=== PATIENT | female | born 1980 | race Two or more races ===

== ENCOUNTER 2025-07-06 10:52 | Inpatient (IN) | payer OTHER ==
[~2025-07-06] VITALS: Ht 170.2 cm; Wt 99.8 kg
[2025-07-06] MEDS ORDERED: HYZAAR 50-12.51 EACH PO (11:50)
[2025-07-06 11:51] VITALS: BP 131/90
[2025-07-06 12:01] LABS: BASO % 0.3 % (0.1-1.2); EOS # 0.07 (0.04-0.54); EOS % 1.2 % (0.7-7.0); LYMPH # 2.27 (1.18-3.74); LYMPH % 37.5 % (19.3-53.1); MEAN PLATELET VOLUME 10.80 fl (9.4-12.4); MONO # 0.44 (0.24-0.82); MONO % 7.3 % (4.7-12.5); NEUT # 3.25 (1.56-6.13); NEUT % 53.5 % (34.0-71.1); RED CELL DISTRIBUTION WIDTH 15.9 % (11.6-14.4)
[2025-07-06 12:18] LABS: URINE APPEARANCE Clear; URINE BILIRRUBIN Negative (NEGATIVE); URINE BLOOD Moderate; URINE COLOR Yellow; URINE GLUCOSE Negative (NEGATIVE); URINE KETONE Trace (NEGATIVE); URINE LEUKOCYTE Negative; URINE NITRATE Negative; URINE PROTEIN Trace (NEGATIVE); URINE UROBILINOGEN 1.0 E.U./dl
[2025-07-06 12:22] LABS: URINE BACTERIA 254.3 uL (0.0-1933); URINE EPITHELIAL CELLS 21.9 uL (0.0-38.8); URINE RBC 12.3 uL (0.0-20.8); URINE WBC 20.7 uL (0.0-23.2)
[2025-07-06 12:31] LABS: INR 1.06
[2025-07-06 12:46] LABS: ALT/SGPT 25 U/L (12-78); AST/SGOT 14 U/L (15-37); BILIRUBIN TOTAL 0.45 mg/dL (0.3-1.2); BUN CREA RATIO 13 (7.0-25.0); CREATININE SERUM 0.89 mg/dL (0.55-1.02); GFR 67.98; GLOBULINA 3.9 G/DL (2.4-3.5); GLUCOSE FASTING 82 mg/dL (65-100); OSMOLALITY SERUM 282 MOSM/KG (275-295)
[2025-07-06 12:51] LABS: HCG QUANTITATIVE < 1 mUI/mL (1-3)
[2025-07-06 13:03] LABS: RH POSITIVE
[2025-07-06 13:09] LABS: URINE CAST 0.29 uL (0.0-1.40)
[2025-07-12] MEDS ORDERED: METRONIDAZOLE/SODIUM CHLORIDE 500 MG/100 ML PIGGYBACK IV ONE (11:38)
[2025-07-12] MEDS ORDERED: HEPARIN SODIUM,PORCINE 5,000 UNITS/ML VIAL ONE (11:38)
[2025-07-12] MEDS ORDERED: CEFAZOLIN SODIUM 1,000 MG VIAL ONE (11:39)
[2025-07-12] MEDS ORDERED: POVIDONE-IODINE 118 ML BOTT TOP ONE (12:37)
[2025-07-12] MEDS ORDERED: ENALAPRILAT DIHYDRATE 1.25 MG/ML VIAL IV PRN (16:00)
[2025-07-12] MEDS ORDERED: RINGERS SOLUTION,LACTATED 1,000 ML IV SCH (16:15)
[2025-07-12] MEDS ORDERED: GABAPENTIN 300 MG CAPSULE PO SCH (17:00)
[2025-07-12] MEDS ORDERED: SUGAMMADEX SODIUM 200 MG/2 ML VIAL IV ONE (17:00)
[2025-07-12] MEDS ORDERED: ACETAMINOPHEN 500 MG GEL..CAP PO SCH (18:00)
[2025-07-12] MEDS ORDERED: KETOROLAC TROMETHAMINE 30 MG VIAL IV SCH (18:00)
[2025-07-12] MEDS ORDERED: ONDANSETRON HCL 2 MG/ML VIAL IV SCH (18:00)
[2025-07-12] MEDS ORDERED: KETOROLAC TROMETHAMINE 30 MG VIAL ONE (19:12)
[2025-07-13 00:31] VITALS: BP 118/69
[2025-07-13 06:54] LABS: BASO % 0.2 % (0.1-1.2); EOS # 0.01 (0.04-0.54); EOS % 0.1 % (0.7-7.0); LYMPH # 1.87 (1.18-3.74); LYMPH % 18.9 % (19.3-53.1); MEAN PLATELET VOLUME 11.00 fl (9.4-12.4); MONO # 0.55 (0.24-0.82); MONO % 5.6 % (4.7-12.5); NEUT # 7.42 (1.56-6.13); NEUT % 75.0 % (34.0-71.1); RED CELL DISTRIBUTION WIDTH 15.3 % (11.6-14.4)
[2025-07-13 08:00] VITALS: BP 118/72
[2025-07-13] MEDS ORDERED: LOSARTAN/HYDROCHLOROTHIAZIDE 1 UDTAB TABLET PO SCH (09:00)
== END 2025-07-13 15:20 | disposition home or self-care (01) | DRG 743 ==
LOC: OB/GYN 07-12 07:00 → O/R 07-12 11:00 → OB/GYN 07-12 12:00
PROVIDERS: ADMIT Student in an Organized Health Care Education/Training Program; ATTEND Student in an Organized Health Care Education/Training Program
PROC: 0UT74ZZ Resection of Bilateral Fallopian Tubes, Percutaneous Endoscopic Approach (ICD-10-PCS; 2025-07-12)
PROC: 0TNB4ZZ Release Bladder, Percutaneous Endoscopic Approach (ICD-10-PCS; 2025-07-12)
PROC: 0TJB8ZZ Inspection of Bladder, Via Natural or Artificial Opening Endoscopic (ICD-10-PCS; 2025-07-12)
PROC: 0UT94ZZ Resection of Uterus, Percutaneous Endoscopic Approach (ICD-10-PCS; principal; 2025-07-12 07:00)
DX: D25.1 Intramural leiomyoma of uterus (principal); D25.2 Subserosal leiomyoma of uterus; D25.0 Submucous leiomyoma of uterus; N80.03 Adenomyosis of the uterus; D64.9 Anemia, unspecified; Z98.890 Other specified postprocedural states